=== PATIENT | female | born 1950 | race Caucasian/White ===

== ENCOUNTER → 2017-05-11 | Outpatient (CLI) | payer OTHER | LOC: BHFA 08:30 | PROVIDERS: ATTEND Internal Medicine Cardiovascular Disease | DX: I25.10 Atherosclerotic heart disease of native coronary artery without angina pectoris (principal); R06.02 Shortness of breath | CPT/HCPCS: 78452; 93017; 93306; A9500; J2785 ==

== ENCOUNTER 2017-06-30 22:03 | Emergency (ER) | payer OTHER ==
[2017-06-30] MEDS ORDERED: OXYMETAZOLINE 30 ML NASAL SPRAY ONE (22:15)
[2017-06-30] MEDS ORDERED: SILVER NITRATE APPLICATOR 1 APPL TP ONE (22:16)
[2017-06-30 22:44] VITALS: TEMP 97.9; O2SAT 95
--- NOTE | 2017-06-30 22:50 | EDPHY ---
H & P Stated Complaint: nosebleed for 7 hours Time Seen by Provider: 06/30/17 22:45 HPI/ROS: CHIEF COMPLAINT: Nose bleed HISTORY OF PRESENT ILLNESS: This is a 66-year-old female with coronary artery disease status post stenting who takes Plavix and aspirin. She presents with nose bleed that began about 7 hr ago and has been persistent. No nasal trauma. She does not feel dizzy or lightheaded. REVIEW OF SYSTEMS: A ten point review of systems was performed and is negative with the exception of the items mentioned in the HPI. Past medical history: 1. Coronary artery disease status post stenting 2. Diabetes, insulin dependent 3. Hypertension Family history: Social history: She lives with her at [facility]. 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 General Appearance: Alert. Vital signs reviewed. Blood pressure 146/58. ENT, Mouth: There is an area on the medial aspect of the right nare that is friable and actively bleeding. Neck: No lymphadenopathy. Trachea midline. Respiratory: Lungs are clear to auscultation; no wheezes, rales, or rhonchi. Cardiovascular: Regular rate and rhythm; no murmur, rub, or gallop. Skin: Warm and dry, normal color. Neurological: Alert and oriented. Moving all four extremities easily and equally. Psychiatric: Normal affect. - Personal History Current Tetanus Diphtheria and Acellular Pertussis (TDAP): Yes Tetanus Vaccine Date: unsure - Medical/Surgical History Hx Asthma: No Hx Chronic Respiratory Disease: No Hx Diabetes: Yes Hx Cardiac Disease: Yes Hx Renal Disease: No Hx Cirrhosis: No Hx Alcoholism: No Hx HIV/AIDS: No Hx Splenectomy or Spleen Trauma: No Other PMH: diabetic, angioplasty x 3,pelvic prolapse repair,hand surgery, neuropathy,hypothyroid,high cholesterol - Social History Smoking Status: Never smoked Constitutional: Initial Vital Signs Temperature (C) 36.6 C 06/30/17 22:15 Heart Rate 87 06/30/17 22:15 Respiratory Rate 18 06/30/17 22:15 Blood Pressure 146/58 H 06/30/17 22:15 O2 Sat (%) 95 06/30/17 22:15 O2 Delivery Mode Room Air Allergies/Adverse Reactions: No Known Allergies Allergy (Unverified 06/30/17 22:38) Home Medications: Medication Instructions Recorded Nasimr 06/30/17 Carvedilol 06/30/17 Duloxetine HCl 06/30/17 Humalog 06/30/17 Insulin Pump, Patient Own 06/30/17 Lipitor 06/30/17 Lyrica 06/30/17 Plavix 06/30/17 Protonix 06/30/17 Synthroid 06/30/17 Medical Decision Making Procedures: Epistaxis control: The right nostril was packed with an Afrin soaked cotton ball. Patient blew her nose and there was a small quantity of clot. A small area on the medial aspect of the right nostril was noted to be friable with a punctate site of active bleeding. This area was cauterized. Patient was observed for 20 min post cauterization. There was no recurrent bleeding. ED Course/Re-evaluation: Anterior epistaxis controlled with cauterization. Patient is on Plavix and aspirin which might be contributing to her nose bleed. No nasal trauma or manipulation. She has a history of hypertension which might also be a contributing factor. Departure - Departure Disposition: Home, Routine, Self-Care Clinical Impression: Acute anterior epistaxis Condition: Good Instructions: Nosebleed (ED) Additional Instructions: I am referring you to Dr. Larry Barcenas. He is in Ear, Nose, and Throat specialist. If you continue to have problems with nose bleeds I recommend that you be evaluated by an ENT specialist. Referrals: Naty Miller MD [Primary Care Provider] - As per Instructions Larry Barcenas MD [Medical Doctor] - As per Instructions
[2017-06-30 23:34] VITALS: BP 139/68; PULSE 82; RESP 16
== END 2017-06-30 23:20 | disposition home or self-care (01) ==
LOC: CED 22:03
PROC: 3E09XTZ Introduction of Destructive Agent into Nose, External Approach (ICD-10-PCS; principal; 2017-06-30)
DX: R04.0 Epistaxis (principal); I10 Essential (primary) hypertension; E11.9 Type 2 diabetes mellitus without complications; I25.10 Atherosclerotic heart disease of native coronary artery without angina pectoris; Z79.4 Long term (current) use of insulin

== ENCOUNTER → 2018-08-09 | Outpatient (CLI) | payer OTHER | LOC: EMCIMAGING 12:40 | PROVIDERS: ATTEND Internal Medicine | DX: Z12.31 Encounter for screening mammogram for malignant neoplasm of breast (principal) | CPT/HCPCS: 77067-PN ==

== ENCOUNTER → 2018-09-16 | Outpatient (CLI) | payer OTHER | LOC: BHFA 13:30 | PROVIDERS: ATTEND Internal Medicine Cardiovascular Disease | DX: R53.83 Other fatigue (principal) | CPT/HCPCS: 78452; 93017; A9500; J2785 ==

== ENCOUNTER → 2018-09-28 | Outpatient (CLI) | payer OTHER | LOC: BHFA 14:00 | PROVIDERS: ATTEND Internal Medicine Cardiovascular Disease | DX: R06.02 Shortness of breath (principal); I25.10 Atherosclerotic heart disease of native coronary artery without angina pectoris ==